=== PATIENT | female | born 2005 | race Caucasian/White ===

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

== ENCOUNTER 2023-03-07 11:50 | Emergency (ER) | payer OTHER ==
[~2023-03-07] VITALS: Ht 160 cm; Wt 39.9 kg
[2023-03-07 12:06] VITALS: BP 100/62
[2023-03-07] MEDS ORDERED: DOXY100 PO (13:58)
== END 2023-03-07 14:17 | disposition home or self-care (01) ==
LOC: ER 11:50
DX: S61.451A Open bite of right hand, initial encounter (principal); Z79.899 Other long term (current) drug therapy; Z88.5 Allergy status to narcotic agent; W55.01XA Bitten by cat, initial encounter
CPT/HCPCS: 73130; 90471; 90714; 90715; 96372; 99283-25; A9270; J1885